=== PATIENT | male | born 1990 | race Two or more races ===

== ENCOUNTER 2023-12-02 13:27 | Emergency (ER) | payer MEDICAID ==
[~2023-12-02] VITALS: Ht 170.2 cm; Wt 73.9 kg
[2023-12-02] MEDS ORDERED: AMOX-430 PO (18:41)
[2023-12-02] MEDS ORDERED: ACET-2605 PO (18:41)
[2023-12-02] MEDS ORDERED: IBUP-1955 PO (18:41)
[2023-12-02] MEDS ORDERED: dexaMETHasone SOD PHOSPHATE 1 ML ONE (18:56)
[2023-12-02] MEDS ORDERED: IBUPROFEN 400 MG TABLET ONE (18:56)
[2023-12-02] MEDS ORDERED: IBUPROFEN 400 MG TABLET PO ONE (19:00)
[2023-12-02] MEDS ORDERED: dexaMETHasone SOD PHOSPHATE 10 MG/ML VIAL IV ONE (19:00)
[2023-12-02 19:42] VITALS: BP 125/80; TEMP 102.6; O2SAT 97
== END 2023-12-02 19:42 | disposition home or self-care (01) ==
LOC: ER 13:40
DX: J32.9 Chronic sinusitis, unspecified (principal); Z60.2 Problems related to living alone; Z20.822 Contact with and (suspected) exposure to COVID-19
CPT/HCPCS: 99283; 87426; 87804 ×2; 87880; J1100; 86403-TC